=== PATIENT | male | born 1955 | race Caucasian/White ===

== ENCOUNTER → 2018-07-29 | Outpatient (REF) | payer OTHER ==
[~2018-07-29] MED LIST: ACET500C; IBUPROFEN
== END ==
LOC: M LAB LCGH 13:29
PROVIDERS: ATTEND Nurse Practitioner Family
DX: L91.8 Other hypertrophic disorders of the skin (principal); R23.8 Other skin changes

== ENCOUNTER → 2018-08-22 | Outpatient (REF) | payer OTHER | LOC: M LAB REF 16:28 | PROVIDERS: ATTEND Surgery | DX: L72.0 Epidermal cyst (principal); D23.5 Other benign neoplasm of skin of trunk ==

== ENCOUNTER → 2018-09-10 | Outpatient (CLI) | payer OTHER ==
[2018-09-10 11:40] LABS: COLLAGEN EPINEPHRINE 142 SECONDS (74-162)
== END ==
LOC: M LAB 10:16
PROVIDERS: ATTEND Ophthalmology
DX: L72.0 Epidermal cyst (principal); D23.112 Other benign neoplasm of skin of right lower eyelid, including canthus; L82.1 Other seborrheic keratosis

== ENCOUNTER → 2020-01-09 | Outpatient (CLI) | payer OTHER ==
[2020-01-09 07:07] LABS: BASO # 0.1 10^3/uL (0.0-0.2); BASO % 1.4 % (0.0-1.0); EOS # 0.3 10^3/uL (0.0-0.5); HEMATOCRIT 50.9 % (42.0-52.0); HEMOGLOBIN 17.2 g/dl (13.5-17.5); LYMPH # 2.7 10^3/uL (1.5-5.0); LYMPH % 32.3 % (24.0-44.0); MEAN CORPUSCULAR HEMOGLOBIN 30.6 pg (27.0-33.0); MEAN CORPUSCULAR HGB CONC 33.8 g/dl (32.0-36.5); MEAN CORPUSCULAR VOLUME 90.6 fl (80.0-96.0); MONO # 0.8 10^3/uL (0.0-0.8); MONO % 9.2 % (0.0-5.0); NEUTROPHILS # 4.5 10^3/uL (1.5-8.5); PLATELET COUNT, AUTOMATED 188 10^3/uL (150-450); RED BLOOD COUNT 5.62 10^6/uL (4.30-6.10); WHITE BLOOD COUNT 8.3 10^3/uL (4.0-10.0)
[2020-01-09 07:34] LABS: BLOOD UREA NITROGEN 13 MG/DL (7-18); CALCIUM LEVEL 9.2 MG/DL (8.8-10.2); CARBON DIOXIDE LEVEL 27 MEQ/L (21-32); CHLORIDE LEVEL 108 MEQ/L (98-107); CHOLESTEROL LEVEL 98 MG/DL (<200); CHOLESTEROL RISK RATIO 3.062 (<5); CREATININE FOR GFR 0.84 MG/DL (0.70-1.30); GLOMERULAR FILTRATION RATE > 60.0 (>49); GLUCOSE, FASTING 119 MG/DL (70-100); HDL CHOLESTEROL 32 MG/DL (>40); LDL CHOLESTEROL 24 MG/DL (<100); NON-HDL-C 66 MG/DL; POTASSIUM SERUM 3.7 MEQ/L (3.5-5.1); SODIUM LEVEL 140 MEQ/L (136-145); TRIGLYCERIDES LEVEL 208 MG/DL (<150)
== END ==
LOC: M LAB 06:20
PROVIDERS: ATTEND Internal Medicine Cardiovascular Disease
DX: I25.10 Atherosclerotic heart disease of native coronary artery without angina pectoris (principal); I10 Essential (primary) hypertension; E78.00 Pure hypercholesterolemia, unspecified

== ENCOUNTER → 2021-03-03 | Outpatient (CLI) | payer OTHER ==
[2021-03-03 08:15] LABS: BASO # 0.1 10^3/uL (0.0-0.2); BASO % 1.3 % (0.0-1.0); EOS # 0.3 10^3/uL (0.0-0.5); EOS % 3.5 % (0.0-3.0); HEMATOCRIT 49.7 % (42.0-52.0); HEMOGLOBIN 16.8 g/dl (13.5-17.5); LYMPH # 2.4 10^3/uL (1.5-5.0); LYMPH % 33.3 % (24.0-44.0); MEAN CORPUSCULAR HEMOGLOBIN 30.1 pg (27.0-33.0); MEAN CORPUSCULAR HGB CONC 33.8 g/dl (32.0-36.5); MEAN CORPUSCULAR VOLUME 88.9 fl (80.0-96.0); MONO # 0.6 10^3/uL (0.0-0.8); MONO % 8.4 % (2.0-8.0); NEUTROPHILS # 3.8 10^3/uL (1.5-8.5); NEUTROPHILS % 53.4 % (36.0-66.0); PLATELET COUNT, AUTOMATED 187 10^3/uL (150-450); RED BLOOD COUNT 5.59 10^6/uL (4.30-6.10); WHITE BLOOD COUNT 7.2 10^3/uL (4.0-10.0)
[2021-03-03 08:41] LABS: ALBUMIN 3.5 GM/DL (3.2-5.2); ALT/SGPT 31 U/L (12-78); BILIRUBIN,DIRECT 0.2 MG/DL (0.0-0.2); BILIRUBIN,TOTAL 0.4 MG/DL (0.2-1.0); BLOOD UREA NITROGEN 17 MG/DL (7-18); CALCIUM LEVEL 9.4 MG/DL (8.8-10.2); CARBON DIOXIDE LEVEL 27 MEQ/L (21-32); CHLORIDE LEVEL 108 MEQ/L (98-107); CREATININE FOR GFR 0.88 MG/DL (0.70-1.30); GLOMERULAR FILTRATION RATE > 60.0 (>49); GLUCOSE, FASTING 126 MG/DL (70-100); POTASSIUM SERUM 3.7 MEQ/L (3.5-5.1); SODIUM LEVEL 141 MEQ/L (136-145); TOTAL PROTEIN 6.7 GM/DL (6.4-8.2)
== END ==
LOC: M LAB 07:09
PROVIDERS: ATTEND Internal Medicine Cardiovascular Disease
DX: I25.10 Atherosclerotic heart disease of native coronary artery without angina pectoris (principal)

== ENCOUNTER → 2022-05-19 | Outpatient (CLI) | payer OTHER ==
[2022-05-19 08:08] LABS: BASO # 0.1 10^3/uL (0.0-0.2); BASO % 1.1 % (0.0-1.0); EOS # 0.3 10^3/uL (0.0-0.5); EOS % 2.3 % (0.0-3.0); HEMOGLOBIN 16.7 g/dl (13.5-17.5); LYMPH # 2.8 10^3/uL (1.5-5.0); LYMPH % 25.3 % (24.0-44.0); MEAN CORPUSCULAR HEMOGLOBIN 30.4 pg (27.0-33.0); MEAN CORPUSCULAR HGB CONC 33.4 g/dl (32.0-36.5); MEAN CORPUSCULAR VOLUME 91.1 fl (80.0-96.0); MONO # 0.9 10^3/uL (0.0-0.8); MONO % 7.6 % (2.0-8.0); NEUTROPHILS % 63.3 % (36.0-66.0); PLATELET COUNT, AUTOMATED 199 10^3/uL (150-450); RED BLOOD COUNT 5.49 10^6/uL (4.30-6.10); WHITE BLOOD COUNT 11.1 10^3/uL (4.0-10.0)
[2022-05-19 08:30] LABS: ALBUMIN 3.8 G/DL (3.2-5.2); ALKALINE PHOSPHATASE 60 U/L (46-116); ALT/SGPT 22 U/L (7.0-40); AST/SGOT 13 U/L (<34); BILIRUBIN,TOTAL 0.4 MG/DL (0.3-1.2); BLOOD UREA NITROGEN 16 MG/DL (9-23); CALCIUM LEVEL 9.9 MG/DL (8.3-10.6); CARBON DIOXIDE LEVEL 27 MMOL/L (20-31); CHLORIDE LEVEL 107 MMOL/L (98-107); CHOLESTEROL LEVEL 99 MG/DL (<200); CHOLESTEROL RISK RATIO 2.95 (<5); CREATININE FOR GFR 0.74 MG/DL (0.70-1.30); GLOMERULAR FILTRATION RATE > 60.0 (>49); GLUCOSE, FASTING 113 MG/DL (74-106); HDL CHOLESTEROL 33.5 MG/DL (>40); LDL CHOLESTEROL 49.3 MG/DL (<100); NON-HDL-C 65.5 MG/DL; POTASSIUM SERUM 4.4 MMOL/L (3.5-5.1); SODIUM LEVEL 141 MMOL/L (136-145); TOTAL PROTEIN 6.5 G/DL (5.7-8.2); TRIGLYCERIDES LEVEL 81 MG/DL (<150)
== END ==
LOC: M LAB 07:19
PROVIDERS: ATTEND Internal Medicine Cardiovascular Disease
DX: I25.10 Atherosclerotic heart disease of native coronary artery without angina pectoris (principal); I10 Essential (primary) hypertension; E78.5 Hyperlipidemia, unspecified; Z79.899 Other long term (current) drug therapy

== ENCOUNTER → 2023-07-31 | Outpatient (REF) | payer MEDICARE, BC | LOC: M SFHCDERM 09:09 | PROVIDERS: ATTEND Nurse Practitioner Family | DX: D36.11 Benign neoplasm of peripheral nerves and autonomic nervous system of face, head, and neck (principal) ==